=== PATIENT | male | born 1985 | race Hispanic/Latino ===

== ENCOUNTER 2019-07-10 21:38 | Emergency (ER) | payer BC ==
[2019-07-10] MEDS ORDERED: GENTAMICIN0.3 % OS (22:02)
[2019-07-10] MEDS ORDERED: PERCOCET 5/325M1 TAB PO (22:27)
[2019-07-10 22:35] VITALS: BP 130/76
== END 2019-07-10 22:35 | disposition home or self-care (01) | DRG 125 ==
LOC: ED 21:38
DX: T15.02XA Foreign body in cornea, left eye, initial encounter (principal); X58.XXXA Exposure to other specified factors, initial encounter; Y93.H3 Activity, building and construction; Y92.89 Other specified places as the place of occurrence of the external cause; Y99.0 Civilian activity done for income or pay